=== PATIENT | male | born 1970 | race Caucasian/White ===

== ENCOUNTER 2016-10-14 23:47 | Emergency (ER) | payer BC ==
[~2016-10-14] VITALS: Ht 177.8 cm; Wt 95.6 kg
[2016-10-15] MEDS ORDERED: HYDR12.53 PO (00:21)
[2016-10-15] MEDS ORDERED: PARO20TA4 PO (00:21)
[2016-10-15] MEDS ORDERED: LOVA20TA2 PO (00:21)
[2016-10-15] MEDS ORDERED: FAMOTIDINE 20 MG TABLET ONE (00:24)
[2016-10-15] MEDS ORDERED: EPINEPHRINE 1 MG/ML, 1ML ONE (00:24)
[2016-10-15] MEDS ORDERED: FAMOTIDINE 20 MG TABLET PO ONE (00:30)
[2016-10-15] MEDS ORDERED: EPINEPHRINE 1 MG/ML, 1ML SQ ONE (00:30)
[2016-10-15 01:56] VITALS: BP 114/62
== END 2016-10-15 01:59 | disposition home or self-care (01) ==
LOC: ED 23:59
DX: L50.0 Allergic urticaria (principal); I10 Essential (primary) hypertension; F17.200 Nicotine dependence, unspecified, uncomplicated
CPT/HCPCS: 96372; 99284; J0171; J7512; Q0177

== ENCOUNTER → 2018-04-11 | Outpatient (CLI) | payer BC ==
[~2018-04-11] MED LIST: HYDR12.517 PO; LOVA20TA2 PO; PARO20TA4 PO
== END | disposition home or self-care (01) ==
LOC: CFH 14:06
PROVIDERS: ATTEND Family Medicine
DX: M25.561 Pain in right knee (principal)

== ENCOUNTER → 2018-05-28 | Outpatient (CLI) | payer BC ==
[~2018-05-28] MED LIST changes: +OMNIPAQUE 350 MG/ML, 100ML BOTTLE ONE
== END | disposition home or self-care (01) ==
LOC: CFH 14:23
PROVIDERS: ATTEND Family Medicine
DX: Z13.6 Encounter for screening for cardiovascular disorders (principal); R07.9 Chest pain, unspecified
CPT/HCPCS: 71275; 82565; Q9967